=== PATIENT | male | born 1995 | race Caucasian/White ===

== ENCOUNTER 2016-10-10 22:36 | Emergency (ER) | payer BC ==
[2016-10-11] MEDS ORDERED: Azithromycin 250 MG Tab PO ONE (00:16)
[2016-10-11] MEDS ORDERED: Ketorolac 10 MG Tab PO ONE (00:18)
[2016-10-11 01:03] VITALS: BP 147/67
--- NOTE | 2016-10-11 04:00 | ER ---
DATE SEEN: 10/10/2016 TIME SEEN: 2200 hours and discharged around 0016 hours. CHIEF COMPLAINT: Chest pain. HISTORY OF PRESENT ILLNESS: This is a 21-year-old male complaining of retrosternal chest pain, sharp pain with no radiation. Moderate in intensity. Nothing seems to improve it. Symptoms started this morning. REVIEW OF SYSTEMS: No cough or cold symptoms. No fever or chills. Denies any anxiety. ALLERGIES: Tetanus. SOCIAL HISTORY: Does not smoke. He drinks occasionally. 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 PHYSICAL EXAMINATION: VITAL SIGNS: Blood pressure 162/88, temperature of 98.5, normal oxygenation. EARS, NOSE, AND THROAT: Negative. HEAD: Normal size. CHEST: Tenderness to palpation of the sternum. LUNGS: Clear. CARDIOVASCULAR: Normal. MENTAL STATUS: Alert. LABORATORY DATA: Normal white cell count, D-dimer, and troponin. EKG: Normal EKG. X-ray revealed a right-sided opacity possibly infection. IMPRESSION: 1. Costochondritis. 2. Pneumonia. PLAN: 1. Z-Joey. 2. Ketorolac 10 mg t.i.d. p.r.n. 3. Follow up with PCP on Friday. /[id number] RONALD/CATHERINE
== END 2016-10-11 00:25 | disposition home or self-care (01) ==
LOC: FB.ED 22:36
DX: J18.9 Pneumonia, unspecified organism (principal); M94.0 Chondrocostal junction syndrome [Tietze]; Z88.7 Allergy status to serum and vaccine; J02.9 Acute pharyngitis, unspecified
CPT/HCPCS: 36415; 71020; 80053; 84484; 85025; 85379; 85651; 86140; 87081; 87430; 87804; 93005; 99285; A9270

== ENCOUNTER 2025-01-28 13:23 | Emergency (ER) | payer BC ==
[2025-01-28 13:47] VITALS: BP 146/78; PULSE 92
[2025-01-28 13:53] LABS: BASOPHILS ABSOLUTE AUTO 0.0 x10-3/uL (0.0-0.3); BASOPHILS PERCENT AUTO 0.5 % (0.3-3.8); EOSINOPHILS ABSOLUTE AUTO 0.1 x10-3/uL (0.0-0.6); EOSINOPHILS PERCENT AUTO 2.0 % (0.1-6.8); LYMPHOCYTES ABSOLUTE AUTO 2.1 x10-3/uL (0.5-4.5); LYMPHOCYTES PERCENT AUTO 33.9 % (15.8-45.3); MEAN PLATELET VOLUME 9.6 fL (6.7-11.0); MONOCYTES ABSOLUTE AUTO 0.5 x10-3/uL (0.0-1.2); MONOCYTES PERCENT AUTO 8.1 % (5.5-15.2); NEUTROPHILS ABSOLUTE AUTO 3.4 x10-3/uL (1.7-6.9); NEUTROPHILS PERCENT AUTO 55.5 % (40.3-71.8); PLATELET COUNT,PLT 239 x10(3)uL (117-477); RED BLOOD CELL COUNT 5.11 x10(6)uL (3.90-5.90); RED CELL DISTRIBUTION WIDTH 13.5 % (12.4-15.0); WHITE BLOOD CELL COUNT,WBC 6.2 x10-3/uL (3.2-10.1)
[2025-01-28 13:56] LABS: BLOOD UREA NITROGEN,BUN 14 mg/dL (7-18); CARBON DIOXIDE,CO2 28 mmol/L (21-32); CHLORIDE,CL 103 mmol/L (100-110); CREATININE 1.0 mg/dL (0.70-1.30); EST CRCL DRUG DOSING (CG) 114.00 mL/min; ESTIMATED GFR 103 mL/min (>60); GLUCOSE RANDOM 105 mg/dL (80-116); POTASSIUM,K 3.8 mmol/L (3.5-5.3); SODIUM,NA 139 mmol/L (135-145)
[2025-01-28 14:01] LABS: A/G RATIO 1.3; ALANINE AMINOTRANSFERASE,ALT 35 U/L (12-36); ASPARTATE AMNIOTRANSFERASE,AST 16 IU/L (5-25); BILIRUBIN TOTAL 0.5 mg/dL (0.1-1.3); PROTEIN TOTAL,TP 7.5 g/dL (6.0-8.0)
[2025-01-28] MEDS: Sodium Chloride 0.9% 10 ML Syringe FLUSH PRN (14:07)
== END 2025-01-28 17:46 | disposition home or self-care (01) ==
LOC: FB.ED 13:23
DX: R07.89 Other chest pain (principal); I10 Essential (primary) hypertension; J45.909 Unspecified asthma, uncomplicated; Z90.49 Acquired absence of other specified parts of digestive tract; Z88.7 Allergy status to serum and vaccine
CPT/HCPCS: 36415; 71045; 80053; 83735; 84484; 85025; 85379; 86140; 93005; 99285; A9270-GY